=== PATIENT | female | born 1985 | race Caucasian/White ===

== ENCOUNTER 2019-01-01 23:22 | Emergency (ER) | payer OTHER ==
[~2019-01-01] VITALS: Ht 160 cm; Wt 81.7 kg
[2019-01-01 23:27] VITALS: BP 132/79
[2019-01-01] MEDS ORDERED: BENADRYL25 MG (23:32)
[2019-01-01] MEDS ORDERED: IBUPROFEN 200200 M1 PO (23:32)
[2019-01-01] MEDS ORDERED: DIPHENHIST50 MG PO (23:49)
[2019-01-01] MEDS ORDERED: MEDROLDOSEPACK PO (23:49)
[2019-01-01] MEDS ORDERED: NAPROSYN500 MG PO (23:49)
== END 2019-01-02 00:10 | disposition home or self-care (01) ==
LOC: ER 23:22
DX: R21 Rash and other nonspecific skin eruption (principal); T78.40XA Allergy, unspecified, initial encounter; Z88.0 Allergy status to penicillin; X58.XXXA Exposure to other specified factors, initial encounter